=== PATIENT | female | born 1965 | race Asian ===

== ENCOUNTER 2022-07-17 11:31 | Emergency (ER) | payer BC ==
[~2022-07-17] VITALS: Ht 160 cm; Wt 56.2 kg
[2022-07-17 11:48] VITALS: BP_SYST 158
[2022-07-17 13:29] VITALS: BP_SYST 158
== END 2022-07-17 13:34 | disposition home or self-care (01) ==
LOC: SED 11:31
DX: R21 Rash and other nonspecific skin eruption (principal); T50.B95A Adverse effect of other viral vaccines, initial encounter; Z79.899 Other long term (current) drug therapy
CPT/HCPCS: 99281

== ENCOUNTER 2022-12-25 09:29 | Emergency (ER) | payer BC ==
[~2022-12-25] VITALS: Ht 162.6 cm; Wt 56.2 kg
[2022-12-25 09:46] VITALS: BP_SYST 155
--- NOTE | 2022-12-25 09:46 | NUR ---
PT BIB SELF FROM HOME UTI SYMPTOMS FOR 2 DAYS. HX - N/A. PT IS AAX04, VSS, NAD, PT IS BREATHING AND UNLABORED. 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 SAFETY PRECAUTIONS AND COMFORT MEASURES IN PLACE. PENDING MD GARCIA AND ORDERS.
--- NOTE | 2022-12-25 09:49 | NUR ---
DR. ROGERS AT BEDSIDE EXAMINING THE PT.
[2022-12-25 10:37] LABS: BILIRUBIN,URINE NEGATIVE (NEGATIVE); COLOR,URINE YELLOW (YELLOW); GLUCOSE,URINE NEGATIVE (NEGATIVE); KETONES,URINE NEGATIVE (NEGATIVE); LEUKOCYTE ESTERASE ,URINE 1+ (NEGATIVE); NITRITE, URINE NEGATIVE (NEGATIVE); PROTEIN URINE NEGATIVE (NEGATIVE); UROBILINOGEN,URINE 0.2 (0.2-1.0)
[2022-12-25 10:40] LABS: BLOOD, URINE TRACE (NEGATIVE); CLARITY/URINE SLIGHTLY HAZY (CLEAR)
[2022-12-25 10:47] LABS: BACTERIA,URINE FEW /HPF (None Seen); RBC,URINE 0-3 /HPF (0-3)
[2022-12-25] MEDS ORDERED: IBUP-1969 PO (10:47)
[2022-12-25] MEDS ORDERED: PHEN-801 PO (10:47)
[2022-12-25] MEDS ORDERED: CIPR500T5 PO (10:47)
[2022-12-25 10:55] VITALS: BP_SYST 125
--- NOTE | 2022-12-25 10:55 | NUR ---
Patient given written and verbal discharge instructions and verbalizes understanding. ER MD discussed with patient the results and treatment provided. Patient in stable condition. Rx of given. Patient educated on pain management and to follow up with PMD. Pain Scale 0/10. Opportunity for questions provided and answered. Medication side effect fact sheet provided.
== END 2022-12-25 10:55 | disposition home or self-care (01) ==
LOC: SED 09:29
DX: N39.0 Urinary tract infection, site not specified (principal); R30.0 Dysuria; R10.30 Lower abdominal pain, unspecified; I10 Essential (primary) hypertension; Z79.899 Other long term (current) drug therapy
CPT/HCPCS: 81000; 87086; 99283